=== PATIENT | female | born 1935 | race African-American/Black ===

== ENCOUNTER → 2016-09-26 | Outpatient (CLI) | payer MEDICAID, MEDICARE ==
--- NOTE | 2016-09-26 16:27 | WOMENS IMAGING REPORT ---
EXAM DESCRIPTION: BILAT SCREENING MAMMO W/CAD COMPLETED DATE/TIME: 09/26/2016 11:31 am REASON FOR STUDY: Z12.31 ROUTINE SCREENING MAMMO Z12.31 ENCNTR SCREEN MAMMOGRAM FOR MALIGNANT NEOPL ASM OF CHELY COMPARISON: None. TECHNIQUE: Standard craniocaudal and mediolateral oblique views of each breast recorded using Fresviia l acquisition. LIMITATIONS: None. FINDINGS: RIGHT BREAST MASSES: No suspicious masses. CALCIFICATIONS: No new or suspicious calcifications. ARCHITECTURAL DISTORTION: None. DEVELOPING DENSITY: None. ASYMMETRY: Asymmetry medial breast seen only on the CC new 10 cm from the nipple OTHER: No other significant findings. LEFT BREAST MASSES: No suspicious masses. CALCIFICATIONS: No new or suspicious calcifications. ARCHITECTURAL DISTORTION: None. DEVELOPING DENSITY: None. ASYMMETRY: None noted. OTHER: No other significant findings. Read with the assistance of CAD. .[facility] - R2 Cenova Version 1.3 .[facility] Imaging - R2 Cenova Version 1.3 .[facility] Imaging - R2 Cenova Version 2.4 .[facility] [place] - R2 Cenova Version 2.4 .[facility] - R2 Veneer Grader Version 9.2 BREAST DENSITY: b. There are scattered areas of fibroglandular density. BIRAD: 0 Incomplete: Additional Imaging Evaluation and/or prior Mammograms for Comparison. RECOMMENDATION: RECOMMENDED FOLLOW-UP: Spot compression with ultrasound if indicated. The patient will be contacted for additional imaging. COMMENT: The [place] [employer] (ACR) has developed recommendations for screening MRI of the breasts in certain patient populations, to be used in conjunction with mammography. Breast MRI s urveillance may be appropriate for women with more than 20% lifetime risk of developing breast cancer as determined by genetic testing, significant family history of the disease, or history of mantle r adiation for Hodgkins Disease. ACR Practice Guidelines 2008. TECHNICAL DOCUMENTATION: FINDING NUMBER: (1) ASSESSMENT: (1) JOB ID: [id number] [employer]- All Rights Reserved
== END ==
LOC: RAD 10:34
PROVIDERS: ATTEND Family Medicine
DX: Z12.31 Encounter for screening mammogram for malignant neoplasm of breast (principal)
CPT/HCPCS: 77067; G0202

== ENCOUNTER → 2016-10-10 | Outpatient (CLI) | payer MEDICARE | LOC: WI 09:17 | PROVIDERS: ATTEND Family Medicine | DX: R92.2 Inconclusive mammogram (principal) | CPT/HCPCS: 76642; G0204 ==

== ENCOUNTER 2018-06-05 16:36 | Emergency (ER) | payer MEDICARE ==
[2018-06-05 16:46] VITALS: BP 147/64
--- NOTE | 2018-06-05 17:32 | ER Document Report ---
ED General - General Mode of Arrival: Ambulatory Information source: Patient TRAVEL OUTSIDE OF THE U.S. IN LAST 30 DAYS: No - General Chief Complaint: Nausea Stated Complaint: MEDICATION INJESTION Time Seen by Provider: 06/05/18 17:22 Notes: Patient is an 82 year old female presenting to the emergency department accompanied by daughter due to accidentally taking the wrong medications around 1510 today. Patient states she was attempting to give her mentally disabled roommate his medications when she accidentally took them herself. His medications include Ditropan 5 mg and lisinopril hydrochlorothiazide 40/25. Patient states she feels a little weak and sleepy. She deneis any chest pain or recent falls. Patient mentions left arm pain with movement onset 1 month ago. She reports having an appointment with her PCP, Dr. Phillips on Jun.29. (KAMARI TOVAR) - Related Data Allergies/Adverse Reactions: Sulfa (Sulfonamide Antibiotics) Allergy (Intermediate, Verified 09/02/11 12:25) Generalized Itching Past Medical History - General Information source: Patient - Social History Smoking Status: Never Smoker Chew tobacco use (# tins/day): No Frequency of alcohol use: None Drug Abuse: None Family History: None Patient has suicidal ideation: No Patient has homicidal ideation: No - Past Medical History Cardiac Medical History: Reports: Hx Congestive Heart Failure, Hx Hypercholesterolemia, Hx Hypertension Neurological Medical History: Reports: Hx Cerebrovascular Accident Endocrine Medical History: Reports: Hx Diabetes Mellitus Type 2 - INSULIN AND ORAL MEDS GI Medical History: Reports: Hx Gastroesophageal Reflux Disease Musculoskeletal Medical History: Reports Hx Arthritis Psychiatric Medical History: Reports: Hx Depression Past Surgical History: Reports: Hx Cholecystectomy, Hx Tubal Ligation - Immunizations Hx Diphtheria, Pertussis, Tetanus Vaccination: Yes Hx Pneumococcal Vaccination: 08/26/11 Review of Systems - Review of Systems Constitutional: See HPI EENT: No symptoms reported Cardiovascular: No symptoms reported Respiratory: No symptoms reported Gastrointestinal: No symptoms reported Genitourinary: No symptoms reported Female Genitourinary: No symptoms reported Musculoskeletal: See HPI Skin: No symptoms reported Hematologic/Lymphatic: No symptoms reported Neurological/Psychological: No symptoms reported -: Yes All other systems reviewed and negative Physical Exam - Vital signs Vitals: Temp Pulse Resp BP Pulse Ox 98.5 F 88 14 147/64 H 94 06/05/18 16:43 06/05/18 16:43 06/05/18 16:43 06/05/18 16:43 06/05/18 16:43 - Notes Notes: GENERAL: Alert, interacts well. No acute distress. HEAD: Normocephalic, atraumatic. EYES: Pupils equal, round, and reactive to light. Extraocular movements intact. ENT: Oral mucosa moist, tongue midline. NECK: Full range of motion. Supple. Trachea midline. LUNGS: Clear to auscultation bilaterally, no wheezes, rales, or rhonchi. No respiratory distress. HEART: Regular rate and rhythm. No murmurs, gallops, or rubs. EXTREMITIES: Moves all 4 extremities spontaneously. Tender to palpation to distal left forearm, ulnar aspect, no signs of trauma, no deformities. NEUROLOGICAL: Alert and oriented x3. Normal speech. PSYCH: Normal affect, normal mood. SKIN: Warm, dry, normal turgor. No rashes or lesions noted. (KAMARI TOVAR) Course - Re-evaluation Re-evalutation: 06/05/18 17:32 Patient took a combination of lisinopril hydrochlorothiazide and a single dose of Ditropan. She is having no symptoms she is not hypotensive and she has urinated since the event. Patient will be discharged home, no need for observation, no need for labs, no need for EKG. Patient advised to record when she urinates next so we can make sure she is not having any urinary retention, will return should she have any difficulty urinating over the next 12 hours. Patient and daughter are in agreement with this plan. This was not a suicide attempt. (ASHA MADRID) - Vital Signs Vital signs: Temp Pulse Resp BP Pulse Ox 98.5 F 88 14 147/64 H 94 06/05/18 16:43 06/05/18 16:43 06/05/18 16:43 06/05/18 16:43 06/05/18 16:43 Discharge - Discharge Clinical Impression: Drug ingestion, accidental Qualifiers: Encounter type: initial encounter Qualified Code(s): T50.901A - Poisoning by unspecified drugs, medicaments and biological substances, accidental ( unintentional), initial encounter Condition: Stable Disposition: HOME, SELF-CARE Additional Instructions: Today your blood pressure was actually slightly elevated. This is a good thing because the medication she took can lower your blood pressure. Do not stand up suddenly and make sure you are drinking plenty of fluids. Please record when you urinate. If you go more than 8-12 hours without urinating please come to the emergency department as the Ditropan can cause urinary retention. You do not need to stay on a monitor, you do not need any blood work. You are safe for discharge home. Return for dizziness or inability to urinate. Referrals: DAIANA HURT, [NO LOCAL MD] - Follow up as needed Scribe Attestation: 06/05/18 20:58 I personally performed the services described in the documentation, reviewed and edited the documentation which was dictated to the scribe in my presence, and it accurately records my words and actions. (ASHA MADRID) Scribe Documentation - Scribe Written by Katia:: Katia Smith, 06/05/2018 17:51 acting as scribe for :: Kaitlin
== END 2018-06-05 17:40 | disposition home or self-care (01) ==
LOC: ER 16:36
DX: T44.3X5A Adverse effect of other parasympatholytics [anticholinergics and antimuscarinics] and spasmolytics, initial encounter (principal); T46.4X5A Adverse effect of angiotensin-converting-enzyme inhibitors, initial encounter; M79.602 Pain in left arm; R11.0 Nausea; R53.1 Weakness; I10 Essential (primary) hypertension; E11.9 Type 2 diabetes mellitus without complications; Z79.4 Long term (current) use of insulin; Z79.84 Long term (current) use of oral hypoglycemic drugs
CPT/HCPCS: 99283

== ENCOUNTER → 2018-08-08 | Outpatient (CLI) | payer MEDICARE, MEDICAID ==
--- NOTE | 2018-08-08 14:40 | WOMENS IMAGING REPORT ---
EXAM DESCRIPTION: BILAT SCREENING MAMMO W/CAD COMPLETED DATE/TIME: 08/08/2018 11:33 am REASON FOR STUDY: BILATERAL SCREENING MAMMO /Z12.31 Z12.31 ENCNTR SCREEN MAMMOGRAM FOR MALIGNANT NE OPLASM OF CHELY COMPARISON: 2016 TECHNIQUE: Standard craniocaudal and mediolateral oblique views of each breast recorded using AgentPiggya l acquisition. LIMITATIONS: None. FINDINGS: No masses, calcifications or architectural distortion. No areas of suspicion. Read with the assistance of CAD. .[facility] - R2 Cenova Version 1.3 .[facility] Imaging - R2 Cenova Version 1.3 .[facility] Imaging - R2 Cenova Version 2.4 .[facility] [place] R2 Cenova Version 2.4 .[facility] - R2 Power Plant Engineer Version 9.2 IMPRESSION: NORMAL MAMMOGRAM. BIRADS 1. BREAST DENSITY: b. There are scattered areas of fibroglandular density. BIRAD: 1 NEGATIVE RECOMMENDATION: ROUTINE SCREENING Please continue yearly bilateral screening mammography/tomosynthesis in July 2019 COMMENT: The patient has been notified of the results by letter per [place] requirements. Additional no tification policies are in place for contacting patient with suspicious or incomplete findings. Quality ID #[id number]: The [place] [employer] [employer] recommends an annual screening mammogram for women aged 40 years or over. This facility utilizes a reminder system to ensure that all patients receive reminder letters, and/or direct phone calls for appointments. This includes reminders for routine scr eening mammograms, diagnostic mammograms, or other Breast Imaging Interventions when appropriate. Th is patient will be placed in the appropriate reminder system. The [place] [employer] (ACR) has developed recommendations for screening MRI of the breast s in certain patient populations, to be used in conjunction with mammography. Breast MRI surveillanc e may be appropriate for women with more than 20% lifetime risk of developing breast cancer as deter mined by genetic testing, significant family history of the disease, or history of mantle radiation f or Hodgkins Disease. ACR Practice Guidelines 2008. TECHNICAL DOCUMENTATION: FINDING NUMBER: (1) ASSESSMENT: (1) JOB ID: [id number] [employer]- All Rights Reserved Reading location - IP/workstation name: [email or web address]
== END ==
LOC: WI 10:58
PROVIDERS: ATTEND Internal Medicine
DX: Z12.31 Encounter for screening mammogram for malignant neoplasm of breast (principal)
CPT/HCPCS: 77067

== ENCOUNTER 2018-08-24 03:27 | Emergency (ER) | payer MEDICARE, MEDICAID ==
[2018-08-24] MEDS ORDERED: ACETAMINOPHEN 325 MG TABLET PO ONE (04:04)
--- NOTE | 2018-08-24 04:12 | ER Document Report ---
Addendum entered and electronically signed by NORMAN MUSA PA-C 08/26/18 07:22: Discharge - Discharge Clinical Impression: Hip pain, left Condition: Stable Disposition: HOME, SELF-CARE Additional Instructions: Both the x-ray and CAT scan of your hip showed no acute fracture or dislocation. The urinalysis did not show any signs of infection. Please take either ibuprofen or Tylenol for pain. Please follow-up with Dr. Araujo's office, call him tomorrow morning to schedule an appointment. Referrals: MARTHA ARAUJO MD [Primary Care Provider] - Follow up as needed Original Note: ED General - General TRAVEL OUTSIDE OF THE U.S. IN LAST 30 DAYS: No - HPI Patient complains to provider of: hip pain - General Chief Complaint: Hip Pain Stated Complaint: BACK PAIN Time Seen by Provider: 08/24/18 03:37 Notes: Pleasant 82-year-old female with type 2 diabetes and hyperlipidemia presents to the emergency department for left hip pain. She says that she had a mechanical fall on July 20 and was otherwise fine until about 3 days ago when the pain returned. She said it got progressively worse to the point where she could not get out of bed this evening which prompted her to call 911. She otherwise ambulates on her own without assistance. She denies fevers, hitting her head, loss of consciousness, dizziness, lightheadedness, shortness of breath, chest pain, abdominal pain. (NORMAN MUSA) - Related Data Allergies/Adverse Reactions: Sulfa (Sulfonamide Antibiotics) Allergy (Intermediate, Verified 09/02/11 12:25) Generalized Itching Past Medical History - General Information source: Patient, Relative - Social History Smoking Status: Never Smoker Family History: None - Past Medical History Cardiac Medical History: Reports: Hx Congestive Heart Failure, Hx Hypercholesterolemia, Hx Hypertension Pulmonary Medical History: Denies: Hx Tuberculosis Neurological Medical History: Reports: Hx Cerebrovascular Accident Endocrine Medical History: Reports: Hx Diabetes Mellitus Type 2 - INSULIN AND ORAL MEDS Renal/ Medical History: Denies: Hx Peritoneal Dialysis GI Medical History: Reports: Hx Gastroesophageal Reflux Disease Musculoskeletal Medical History: Reports Hx Arthritis Psychiatric Medical History: Reports: Hx Depression Past Surgical History: Reports: Hx Cholecystectomy, Hx Tubal Ligation. Denies: Hx Pacemaker - Immunizations Hx Diphtheria, Pertussis, Tetanus Vaccination: Yes Hx Pneumococcal Vaccination: 08/26/11 Review of Systems - Review of Systems Constitutional: See HPI EENT: No symptoms reported Cardiovascular: See HPI Respiratory: See HPI Gastrointestinal: No symptoms reported Genitourinary: No symptoms reported Female Genitourinary: No symptoms reported Musculoskeletal: See HPI Skin: No symptoms reported Hematologic/Lymphatic: No symptoms reported Neurological/Psychological: See HPI Physical Exam - Vital signs Vitals: Temp Pulse Resp BP Pulse Ox 99.2 F 73 18 159/71 H 92 08/24/18 03:51 08/24/18 03:51 08/24/18 03:51 08/24/18 03:51 08/24/18 03:51 - Notes Notes: Reviewed vital signs and nursing note as charted by RN. CONSTITUTIONAL: Well-appearing, well-nourished, acting appropriately for age HEAD: Normocephalic, atraumatic, no swelling EYES: PERRL, Conjunctivae clear, no drainage, EOMI, no scleral icterus ENT: External ears without lesions, External auditory canal is patent, airway patent, mucous membranes pink and moist CARD: Regular rate and rhythm, no murmurs, no rubs, no gallops, capillary refill < 2 seconds, symmetric pulses RESP: The lungs are clear to auscultation bilaterally, no wheezing, no rales, no rhonchi. Respiratory rate and effort are normal, normal chest excursion. No respiratory distress, no retractions, no stridor, no nasal flaring, no accessory muscle use. ABD/GI: Normal bowel sounds, non-distended, soft, tenderness to palpation over left lower quadrant, area of firmness felt that could be consistent with lipoma, no rebound, no guarding, no palpable organomegaly EXT: Limited range of motion while lying in the bed patient was able to lift unaffected extremity about 3 inches off the bed briefly. She was able to elevate left lower extremity off the bed very briefly with pain. She does have tenderness to palpation over the lateral aspect of the left hip superior to the greater trochanter no effusions, no edema SKIN: Normal color for age and race, warm, dry, good turgor, no acute lesions noted NEURO: No facial asymmetry, moves all extremities equally, motor and sensory function intact (NORMAN MUSA) Course - Re-evaluation Re-evalutation: 08/24/18 04:12 Very pleasant 82-year-old woman who ambulates on her own presents to the emergency [facility] for left hip pain that started 3 days ago possibly related to a mechanical fall on giving. Inspection of the hip shows no evidence of erythema or warmth. She does have tenderness to palpation superior to the greater trochanter. She is able to slightly elevate her leg off of the bed. Left hip x-ray ordered. 08/24/18 05:40 X-ray negative for fracture. Reassessed patient she had acute point tenderness when palpating the hip. Patient is unable to ambulate. Will order CT left lower extremity with focus on the iliac crest to the mid femur. Also, daughter is advised the patient has been incontinent since this evening and has a frequency and soaked about 6 or 7 diapers. Urinalysis is added. 08/24/18 07:07 Warm handoff completed with Jillian Kumar. (NORMAN MUSA) 08/24/18 08:[address] of the left hip shows no acute abnormality. Multiple chronic and degenerative changes are noted. I discussed this with both the patient and her family at the bedside. They would like us to try to get the patient up and walk her after giving the pain medication a little time to work. Patient is agreeable to this plan and wants to be able to go home. 08/24/18 08:19 Patient assisted up out of bed, patient now ambulating to the restroom with a walker. Family reports that she uses a walker at home. Patient and family wish to be discharged home. (JILLIAN KUMAR) - Vital Signs Vital signs: Temp Pulse Resp BP Pulse Ox 99.2 F 73 18 159/71 H 92 08/24/18 03:51 08/24/18 03:51 08/24/18 03:51 08/24/18 03:51 08/24/18 03:51 Discharge - Discharge Clinical Impression: Hip pain, left Condition: Stable Additional Instructions: Both the x-ray and CAT scan of your hip showed no acute fracture or dislocation. The urinalysis did not show any signs of infection. Please take either ib uprofen or Tylenol for pain. Please follow-up with Dr. Araujo's office, call him tomorrow morning to schedule an appointment. Referrals: MARTHA ARAUJO MD [Primary Care Provider] - Follow up as needed
--- NOTE | 2018-08-24 05:05 | RADIOLOGY REPORT (SQ) ---
EXAM DESCRIPTION: XR HIP 2 OR MORE VIEWS COMPLETED DATE/TME: 08/24/2018 04:03 CLINICAL HISTORY: 82 years, Female, mechanical fall, pain COMPARISON: None. NUMBER OF VIEWS: 2 TECHNIQUE: AP pelvis and single view left hip LIMITATIONS: None. FINDINGS: Osteopenia. Extensive calcified uterine fibroids are noted. Negative for acute fracture or dislocation. Moderate degenerative change of the hips bilaterally. Soft tissues are unremarkable. IMPRESSION: Osteopenia with degenerative changes. Calcified uterine fibroids. copyright 2010 [employer]- All Rights Reserved
[2018-08-24] MEDS ORDERED: OXYCODONE HCL IR 5 MG TABLET PO ONE (06:55)
[2018-08-24 07:13] LABS: APPEARANCE,URINE SLIGHTLY-CLOUDY; BILIRUBIN,URINE NEGATIVE (NEGATIVE); COLOR,URINE STRAW; GLUCOSE, URINE NEGATIVE (NEGATIVE); KETONES,URINE NEGATIVE (NEGATIVE); LEUKOCYTE ESTERASE,URINE NEGATIVE (NEGATIVE); NITRITE,URINE NEGATIVE (NEGATIVE); PROTEIN,URINE NEGATIVE (NEGATIVE); URINE SPECIFIC GRAVITY 1.004; UROBILINOGEN,URINE NEGATIVE mg/dL (<2.0)
--- NOTE | 2018-08-24 07:21 | RADIOLOGY REPORT (SQ) ---
CLINICAL DATA: 82-year-old female with suspected occult fracture of left hip. TECHNICAL DATA: Axial CT imaging of the left hip was performed from the iliac crest to the mid femur without contrast. Sagittal and coronal reconstructed images were then performed. The CT study is performed according to ALARA (as low as reasonably achievable) or ALARA/IMAGE GENTLY, with automatic adjustment of mA and/or kV according to patient size. Performed on: 08/24/2018 at 6:05 AM Comparison: Previous left hip x-rays performed on 08/24/2018 at 4:54 AM FINDINGS: The left hip joint is intact. There is narrowing of the left hip joint with associated subchondral cyst formation and hypertrophic spurring consistent with mild to moderate osteoarthritis. The sacroiliac joint is intact. There are vacuum changes of the left sacroiliac joint. The pubic symphysis is intact and demonstrates mild degenerative changes. There are calcifications along the left iliofemoral arteries. There are large calcified fibroids in the pelvis. No focal soft tissue abnormalities are identified. There is no evidence of a hip joint effusion. No definite acute fracture is identified. There is diffuse bone demineralization. IMPRESSION: 1. No evidence of acute fracture involving the left hemipelvis or proximal left femur. 2. 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 3. Degenerative changes of the left sacroiliac joint and pubic symphysis. 4. Vascular calcifications. 5. Large calcified uterine fibroids.
[2018-08-24 08:28] VITALS: BP 177/65
== END 2018-08-24 08:39 | disposition home or self-care (01) ==
LOC: ER 03:27
DX: M25.552 Pain in left hip (principal); E78.00 Pure hypercholesterolemia, unspecified; E78.5 Hyperlipidemia, unspecified; E11.9 Type 2 diabetes mellitus without complications; I50.9 Heart failure, unspecified; I11.0 Hypertensive heart disease with heart failure; Z79.4 Long term (current) use of insulin; Z88.2 Allergy status to sulfonamides; Z90.49 Acquired absence of other specified parts of digestive tract; Z98.51 Tubal ligation status
CPT/HCPCS: 99284; 81001; 73502; 73700; A9270 ×2

== ENCOUNTER 2019-09-06 10:21 | Emergency (ER) | payer MEDICARE, MEDICAID ==
--- NOTE | 2019-09-06 11:02 | ER Document Report ---
ED Medical Screen (RME) - General Chief Complaint: Breathing Difficulty Stated Complaint: COUGH,CONGESTION Time Seen by Provider: 09/06/19 10:52 Primary Care Provider: MARTHA ARAUJO MD [Primary Care Provider] - Follow up as needed Mode of Arrival: Wheelchair Information source: Patient, Relative Notes: 83-year-old female with history of diabetes stroke high blood pressure presents emergency department with complaints of a really bad headache on the right side of her headache feeling dizzy just not feeling well. Daughter gives history of pneumonia approximately 11/2 months ago. Reports she has been on 3 rounds of antibiotics. Patient reports she is just not felt well since that time. Reports she had a severe headache on Saturday night. She reports that even hurt her head to touch it. She reports a little bit better has been taking 650 mg of Tylenol. No complaints of nausea vomiting diarrhea. I have greeted and performed a rapid initial assessment of this patient. A comprehensive ED assessment and evaluation of the patient, analysis of test results and completion of the medical decision making process will be conducted by additional ED providers. TRAVEL OUTSIDE OF THE [place] IN LAST 30 DAYS: No - Related Data Allergies/Adverse Reactions: Sulfa (Sulfonamide Antibiotics) Allergy (Intermediate, Verified 09/06/19 10:52) Generalized Itching Past Medical History - Social History Chew tobacco use (# tins/day): No Frequency of alcohol use: None Drug Abuse: None - Past Medical History Cardiac Medical History: Reports: Hx Congestive Heart Failure, Hx Hypercholesterolemia, Hx Hypertension Pulmonary Medical History: Denies: Hx Tuberculosis Neurological Medical History: Reports: Hx Cerebrovascular Accident Endocrine Medical History: Reports: Hx Diabetes Mellitus Type 2 - INSULIN AND ORAL MEDS Renal/ Medical History: Denies: Hx Peritoneal Dialysis GI Medical History: Reports: Hx Gastroesophageal Reflux Disease Musculoskeltal Medical History: Reports Hx Arthritis Psychiatric Medical History: Reports: Hx Depression Past Surgical History: Reports: Hx Cholecystectomy, Hx Tubal Ligation. Denies: Hx Pacemaker - Immunizations Hx Diphtheria, Pertussis, Tetanus Vaccination: Yes Doctor's Discharge - Discharge Referrals: MARTHA ARAUJO MD [Primary Care Provider] - Follow up as needed
--- NOTE | 2019-09-06 11:59 | RADIOLOGY REPORT (SQ) ---
EXAM DESCRIPTION: CT HEAD WITHOUT COMPLETED DATE/TIME: 09/06/2019 11:35 am REASON FOR STUDY: hx stroke [facility] COMPARISON: 2013. TECHNIQUE: Axial images acquired through the brain without intravenous contrast. Images reviewed wi th bone, brain and subdural windows. Additional sagittal and coronal reconstructions were generated. Images stored on PACS. All CT scanners at this facility use dose modulation, iterative reconstruction, and/or weight based d osing when appropriate to reduce radiation dose to as low as reasonably achievable (ALARA). [facility]: Dose Right [facility]: CareDose [facility]: Dose Right [facility]: Teradose 4D [facility]: Smart Iotelligent RADIATION DOSE: CT Rad equipment meets quality standard of care and radiation dose reduction techniq ues were employed. CTDIvol: 53.2 mGy. DLP: 991 mGy-cm. mGy. LIMITATIONS: None. FINDINGS: VENTRICLES: Slight dilatation, chronic. CEREBRUM: No masses. No hemorrhage. No midline shift. No evidence for acute infarction. Normal gra y/white matter differentiation. No areas of low density in the white matter. CEREBELLUM: No masses. No hemorrhage. No alteration of density. No evidence for acute infarction. EXTRAAXIAL SPACES: No fluid collections. No masses. ORBITS AND GLOBE: No intra- or extraconal masses. Normal contour of globe without masses. CALVARIUM: No fracture. PARANASAL SINUSES: No fluid or mucosal thickening. SOFT TISSUES: No mass or hematoma. OTHER: No other significant finding. IMPRESSION: No acute intracranial abnormality. Mild chronic changes. EVIDENCE OF ACUTE STROKE: NO. COMMENT: Quality ID # [id number]: Final reports with documentation of one or more dose reduction techniques (e.g., Automated exposure control, adjustment of the mA and/or kV according to patient size, use of iterative reconstruction technique) TECHNICAL DOCUMENTATION: JOB ID: [id number] [employer]- All Rights Reserved Reading location - IP/workstation name: [email or web address]
[2019-09-06] MEDS ORDERED: IPRATROPIUM/ALBUTEROL 0.5-2.5 MG/3 ML AMPUL NEB ONE (12:03)
--- NOTE | 2019-09-06 12:03 | RADIOLOGY REPORT (SQ) ---
EXAM DESCRIPTION: CHEST 2 VIEWS COMPLETED DATE/TIME: 09/06/2019 11:39 am REASON FOR STUDY: hx pneumonia cough COMPARISON: 09/12/2012. TECHNIQUE: Frontal and lateral radiographic views of the chest acquired. NUMBER OF VIEWS: Two view. LIMITATIONS: None. FINDINGS: LUNGS AND PLEURA: Linear areas of density in the lingula and lower lobes and right middle lobe. Some of this reflect scar. Other densities look like volume loss. Doubt pneumonia. MEDIASTINUM AND HILAR STRUCTURES: No masses or contour abnormalities. HEART AND VASCULAR STRUCTURES: Cardiac enlargement with slight central vascular congestion. BONES: No acute findings. HARDWARE: None in the chest. OTHER: No other significant finding. IMPRESSION: Areas of scar and subsegmental atelectasis. Cardiomegaly with vascular congestion. TECHNICAL DOCUMENTATION: JOB ID: [id number] [email or web address]- All Rights Reserved Reading location - IP/workstation name: [email or web address]
[2019-09-06] MEDS ORDERED: HYDROCODONE/ACETAMINOPHEN 5-325 MG TABLET PO ONE (12:04)
[2019-09-06 12:34] LABS: ABSOLUTE EOSINOPHILS # (AUTO) 0.1 10^3/uL (0.0-0.6); ABSOLUTE LYMPHOCYTES (AUTO) 0.6 10^3/uL (0.5-4.7); ABSOLUTE MONOCYTES (AUTO) 0.4 10^3/uL (0.1-1.4); ABSOLUTE NEUT (AUTO) 2.7 10^3/uL (1.7-8.2); BASOPHILS % (AUTO) 1.1 % (0-2); EOSINOPHILS % (AUTO) 1.6 % (0-6); HEMATOCRIT 36.3 % (36.0-47.0); HEMOGLOBIN 12.2 g/dL (12.0-15.5); MEAN CORPUSCULAR HEMOGLOBIN 32.3 pg (27.0-33.4); MEAN CORPUSCULAR HGB CONC 33.6 g/dL (32.0-36.0); MEAN CORPUSCULAR VOLUME 96 fl (80-97); MONOCYTES % (AUTO) 11.5 % (3-13); PLATELET COUNT 179 10^3/uL (150-450); RED BLOOD COUNT 3.78 10^6/uL (3.72-5.28); RED CELL DISTRIBUTION WIDTH 14.5 % (11.5-14.0); SEGMENTED NEUTROPHILS % (AUTO) 69.8 % (42-78); TOTAL CELLS COUNTED % (AUTO) 100 %; WHITE BLOOD COUNT 3.9 10^3/uL (4.0-10.5)
[2019-09-06 12:43] LABS: APPEARANCE,URINE CLEAR; BILIRUBIN,URINE NEGATIVE (NEGATIVE); COLOR,URINE YELLOW; GLUCOSE, URINE NEGATIVE (NEGATIVE); KETONES,URINE NEGATIVE (NEGATIVE); LEUKOCYTE ESTERASE,URINE NEGATIVE (NEGATIVE); NITRITE,URINE NEGATIVE (NEGATIVE); PROTEIN,URINE 100 mg/dL (NEGATIVE); URINE SPECIFIC GRAVITY 1.009; UROBILINOGEN,URINE NEGATIVE mg/dL (<2.0)
[2019-09-06 12:50] LABS: ALKALINE PHOSPHATASE 62 U/L (38-126); ANION GAP 10 (5-19); ASPARTATE AMINO TRANSFERASE 25 U/L (14-36); BILIRUBIN,DIRECT 0.2 mg/dL (0.0-0.4); BILIRUBIN,TOTAL 0.7 mg/dL (0.2-1.3); BLOOD UREA NITROGEN 17 mg/dL (7-20); CALCIUM 9.5 mg/dL (8.4-10.2); CARBON DIOXIDE 30 mmol/L (22-30); CHLORIDE 100 mmol/L (98-107); GLUCOSE 153 mg/dL (75-110); POTASSIUM 4.5 mmol/L (3.6-5.0); TOTAL PROTEIN 7.1 g/dL (6.3-8.2)
[2019-09-06] MEDS ORDERED: FUROSEMIDE INJ/PF 20 MG/2 ML SDV IV ONE (14:15)
--- NOTE | 2019-09-06 14:36 | ER Document Report ---
Entered by MANDY ORONA SCRIBE 09/06/19 1153 Acting as scribe for:NIESHA ARELLANO MD ED Respiratory Problem - General Chief Complaint: Breathing Difficulty Stated Complaint: COUGH,CONGESTION Time Seen by Provider: 09/06/19 10:52 Primary Care Provider: MARTHA ARAUJO MD [Primary Care Provider] - Follow up as needed Mode of Arrival: Wheelchair Notes: This 83 year old female patient presents to the emergency department today with complaints of a cough for over a month. Patient reports that she was put on zithromax x7 weeks ago but her cough has never changed. Patient has also had a headache. Patient is a difficult historian so history is limited. Later during the work-up, the patient reports she does have a history of congestive heart failure, that she has noticed that she gets more short of breath when walking for the last few weeks. Her medications include hydrochlorothiazide 12.5 mg daily. TRAVEL OUTSIDE OF THE [place] IN LAST 30 DAYS: No - Related Data Allergies/Adverse Reactions: Sulfa (Sulfonamide Antibiotics) Allergy (Intermediate, Verified 09/06/19 10:52) Generalized Itching Past Medical History - General Information source: Patient, Relative - Social History Smoking Status: Never Smoker Cigarette use (# per day): No Chew tobacco use (# tins/day): No Smoking Education Provided: No Frequency of alcohol use: None Drug Abuse: None Lives with: Family Family History: None Patient has suicidal ideation: No Patient has homicidal ideation: No - Past Medical History Cardiac Medical History: Reports: Hx Congestive Heart Failure, Hx Hypercholesterolemia, Hx Hypertension Neurological Medical History: Reports: Other - Probable TIA 4 years ago, treated in the office Endocrine Medical History: Reports: Hx Diabetes Mellitus Type 2 - INSULIN AND ORAL MEDS GI Medical History: Reports: Hx Gastroesophageal Reflux Disease Musculoskeletal Medical History: Reports Hx Arthritis Psychiatric Medical History: Reports: Hx Depression Past Surgical History: Reports: Hx Cholecystectomy, Hx Tubal Ligation - Immunizations Hx Diphtheria, Pertussis, Tetanus Vaccination: Yes Hx Pneumococcal Vaccination: 08/26/11 Review of Systems - Review of Systems Constitutional: No symptoms reported EENT: No symptoms reported Cardiovascular: No symptoms reported Respiratory: See HPI, Cough Gastrointestinal: No symptoms reported Genitourinary: No symptoms reported Female Genitourinary: No symptoms reported Musculoskeletal: No symptoms reported Skin: No symptoms reported Hematologic/Lymphatic: No symptoms reported Neurological/Psychological: See HPI, Headaches -: Yes All other systems reviewed and negative Physical Exam - Vital signs Vitals: Resp 17 09/06/19 11:18 Interpretation: Normal - General General appearance: Appears well, Alert - HEENT Head: Normocephalic, Atraumatic, Tenderness - Right scalp muscles are tender with palpation Eyes: Normal Pupils: PERRL Neck: Other - Right paraspinal musculature tenderness with palpation. - Respiratory Respiratory status: No respiratory distress Chest status: Nontender Breath sounds: Wheezing - slightly on the right Chest palpation: Normal - Cardiovascular Rhythm: Regular Heart sounds: Normal auscultation Murmur: No - Abdominal Inspection: Normal Distension: No distension Bowel sounds: Normal Tenderness: Nontender Organomegaly: No organomegaly - Back Back: Normal, Nontender - Extremities General upper extremity: Normal inspection. No: Edema General lower extremity: Normal inspection. No: Edema - Neurological Neuro grossly intact: Yes Cognition: Normal Orientation: AAOx4 [place] Coma Scale Eye Opening: Spontaneous [place] Coma Scale Verbal: Oriented [place] Coma Scale Motor: Obeys Commands [place] Coma Scale Total: 15 Speech: Normal - Psychological Associated symptoms: Normal affect, Normal mood - Skin Skin Temperature: Warm Skin Moisture: Dry Skin Color: Normal Course - Re-evaluation Re-evalutation: 09/06/19 15:16 The patient is found to be an atrial flutter with controlled rate. The family and the patient have never been told she had atrial fibrillation or atrial flutter in the past. There is only one EKG comparison in the chart notes from many years ago. 09/06/19 16:00 The chest x-ray showed mild pulmonary vascular congestion, and the BNP was elevated. Patient was given Lasix 20 mg IV, she did recently put out 600 mL's of urine. - Vital Signs Vital signs: Temp Pulse Resp BP Pulse Ox 98.2 F 26 H 128/67 H 96 09/06/19 14:30 09/06/19 16:01 09/06/19 16:01 09/06/19 16:01 - Laboratory Result Diagrams: 09/06/19 12:20 09/06/19 12:20 Laboratory results interpreted by me: 09/06/19 09/06/19 09/06/19 12:20 12:20 12:20 WBC 3.9 L RDW 14.5 H Est GFR (MDRD) Non-Af 59 L Glucose 153 H NT-Pro-B Natriuret Pep 2360 H Urine Protein 09/06/19 12:30 WBC RDW Est GFR (MDRD) Non-Af Glucose NT-Pro-B Natriuret Pep Urine Protein 100 H - Diagnostic Test Radiology reviewed: Image reviewed, Reports reviewed - Chest x-ray shows cardiomegaly with vascular congestion. There are areas of scarring and subsegmental atelectasis. CT scan of the head shows mild chronic changes. - EKG Interpretation by Ri EKG shows normal: [place], Intervals, QRS Complexes. abnormal: ST-T Waves - Borderline inferior T abnormalities Rate: Normal - 70 Rhythm: A.Flutter - Atrial flutter with varying AV block. Critical Care Note - Critical Care Note Total time excluding time spent on procedures (mins): 35 Discharge - Discharge Clinical Impression: Pulmonary vascular congestion, Cardiomegaly, Dyspnea on exertion Atrial flutter Qualifiers: Atrial flutter type: unspecified Qualified Code(s): I48.92 - Unspecified atrial flutter Condition: Stable Disposition: HOME, SELF-CARE Additional Instructions: Congestive Heart Failure You have been diagnosed as having congestive heart failure (CHF). CHF occurs when the heart is unable to pump blood efficiently, leading to fluid buildup in the veins and lungs. Typical symptoms are swelling of the legs, shortness of breath on minor exertion, and fatigue. CHF is treated with salt restriction, medicine to eliminate excess water and salt from the body, and medication to help the heart contract more efficiently. Eliminate added salt and salty foods in your diet. Decrease your activity until excess fluid has been eliminated. It will also be helpful to raise the head of your bed so you can sleep more easily. Keep a daily record of your weight. This will help your physician monitor your progress. Once extra water has been eliminated, light aerobic exercise daily -- such as walking -- will be helpful (unless your physician has told you to restrict activity for other reasons). Be sure to follow up with the physician as instructed. Contact the doctor at once if you worsen in any way. Your evaluation today showed some fluid buildup in the lung tissue, this is called pulmonary vascular congestion or congestive heart failure. You are also found to have an abnormal heart rhythm called atrial flutter. Review of your records does not show this being diagnosed in the past. You should continue your regular medications. Take the copies of your lab work, EKG, and chest x-ray readings to follow-up with Dr. Araujo in the office tomorrow. RETURN TO THE EMERGENCY ROOM IF ANY NEW OR WORSENING SYMPTOMS. Referrals: MARTHA ARAUJO MD [Primary Care Provider] - Follow up tomorrow Scribe Attestation: 09/06/19 13:06 I personally performed the services described in the documentation, reviewed and edited the documentation which was dictated to the scribe in my presence, and it accurately records my words and actions. I personally performed the services described in the documentation, reviewed and edited the documentation which was dictated to the scribe in my presence, and it accurately records my words and actions.
[2019-09-06 17:15] VITALS: BP 129/70
--- NOTE | 2019-09-06 20:45 | EKG REPORT ---
SEVERITY:- ABNORMAL ECG - A-FLUTTER W/ VARIED AV BLOCK, A-RATE 272 BORDERLINE T ABNORMALITIES, INFERIOR LEADS : Confirmed by: Nino Diego 06-Sep-2019 20:45:06
== END 2019-09-06 17:05 | disposition home or self-care (01) ==
LOC: ER 10:21
DX: R06.00 Dyspnea, unspecified (principal); I48.92 Unspecified atrial flutter; I51.7 Cardiomegaly; R09.89 Other specified symptoms and signs involving the circulatory and respiratory systems; R51 Headache; R42 Dizziness and giddiness; E78.00 Pure hypercholesterolemia, unspecified; I10 Essential (primary) hypertension; E11.9 Type 2 diabetes mellitus without complications; Z90.49 Acquired absence of other specified parts of digestive tract; Z98.51 Tubal ligation status; Z88.2 Allergy status to sulfonamides; Z79.4 Long term (current) use of insulin; Z79.84 Long term (current) use of oral hypoglycemic drugs
CPT/HCPCS: 93005; 94640; 99285; 96374; 36415; 85025; 80053; 81001; 84484; 83880; 71046; 70450; 93010; J1940; A9270 ×2; J7620

== ENCOUNTER 2020-06-01 02:03 | Inpatient (IN) | payer MEDICARE, MEDICAID ==
--- NOTE | 2020-06-01 02:30 | ER Document Report ---
ED Cardiac - General Stated Complaint: POST ARREST Time Seen by Provider: 06/01/20 02:30 Primary Care Provider: MARTHA ARAUJO MD [Primary Care Provider] - Follow up as needed TRAVEL OUTSIDE OF THE [place] IN LAST 30 DAYS: No - HPI Notes: 84-year-old female arrives after cardiac arrest at home. Per EMS report, family had last seen patient about an hour before they found her sitting in a chair unresponsive. EMS was called. They report patient's initial rhythm was asystole, eventually turned into PEA, she received 4 doses of epinephrine and had ROSC obtained. Patient then had another brief episode of cardiac arrest, they did not state the rhythm, received 1 dose of epi and ROSC was again achieve d. Report blood glucose 245. She arrives with a Olayinka airway in place. - Related Data Allergies/Adverse Reactions: Sulfa (Sulfonamide Antibiotics) Allergy (Intermediate, Verified 09/06/19 10:52) Generalized Itching Past Medical History - General Information source: Emergency Med Personnel - Social History Smoking Status: Unknown if Ever Smoked Family History: None - Past Medical History Cardiac Medical History: Reports: Hx Congestive Heart Failure, Hx Hypercholesterolemia, Hx Hypertension Pulmonary Medical History: Denies: Hx Tuberculosis Neurological Medical History: Reports: Hx Cerebrovascular Accident Endocrine Medical History: Reports: Hx Diabetes Mellitus Type 2 - INSULIN AND ORAL MEDS Renal/ Medical History: Denies: Hx Peritoneal Dialysis GI Medical History: Reports: Hx Gastroesophageal Reflux Disease Musculoskeletal Medical History: Reports Hx Arthritis Psychiatric Medical History: Reports: Hx Depression Past Surgical History: Reports: Hx Cholecystectomy, Hx Tubal Ligation. Denies: Hx Pacemaker - Immunizations Hx Diphtheria, Pertussis, Tetanus Vaccination: Yes Hx Pneumococcal Vaccination: 08/26/11 Review of Systems - Review of Systems -: Yes ROS unobtainable due to patient's medical condition Physical Exam - Vital signs Vitals: Pulse Ox 92 06/01/20 02:31 - General General appearance: Unresponsive - HEENT Head: Normocephalic, Atraumatic Eyes: No: Scleral icterus Notes: Slight pupillary discrepancy, right pupil his 3 mm and reactive, left pupil is 2 mm and reactive. Appears potentially she has had cataract surgery. Mucous membranes appear pale, she is edentulous. No JVD. - Respiratory Respiratory status: Other - Patient occasionally with spontaneous respiratory effort Breath sounds: Rhonchi - Cardiovascular Rhythm: Regular Pulses: Normal: Carotid, Femoral - Abdominal Inspection: Obese - Extremities General lower extremity: Edema - Neurological Notes: GCS 3 with occasional spontaneous respiratory effort - Psychological Associated symptoms: Other - Unable to assess - Skin Skin Temperature: Warm Course - Re-evaluation Re-evalutation: 84-year-old female arrives status post cardiac arrest at home. Present immediately on EMS arrival. Per EMS report, patient was found unresponsive in her chair at home, initial rhythm asystole which turned into PEA, she ultimately received 5 rounds of epi. Olayinka airway in place. On arrival patient is a GCS 3 with occasional spontaneous respiratory effort. She arrived with heart rate in the 90s, she then had decreased to the 50s-40s with blood pressure 70s/40s. Patient received a IV dose of epinephrine, with increased heart rate and blood pressure. It was noted that patient had a brief episode of a polyform vtach, appeared to be torsade. This was captured on the monitor. She immediately received 2 g magnesium push and did not have any other recorded episodes of this. She was intubated with 7.0 ETT, 22 at the [facility]. EKG obtained which shows a sinus rhythm, prolonged NH interval, QTC within normal limits, no STEMI. Laboratory and imaging have been ordered. Bedside ultrasound performed, no large pericardial effusion 06/01/20 03:27 Discussed with ICU for admission 06/01/20 03:52 Family has arrived at bedside and they were updated. Patient's daughter states around 11:50 PM she received a call from patient's roommate, roommate put the phone to patient's face and she was mumbling incoherently. Patient son states that for the past 2 weeks he has been taking her to her doctor's office multiple times, she has been being seen for generalized weakness and cough. He states that she had some high potassium and was on 5 days of medication to help with that. He states that she also recently saw her utility arborist who said "she was as good as she could before her age", "not a candidate for a cardiac cath". 06/01/20 03:55 No leukocytosis or left shift. Chronic anemia. Metabolic and lactic acidosis. Potassium within normal limits. Elevated creatinine, TRISTIAN. Elevated LFTs, likely shock liver. BNP elevated, troponin leak. Chest x-ray showing right lower airspace opacity, Zosyn ordered for empiric coverage. 06/01/20 04:[address] is negative for bleed. Patient remains hemodynamically stable, has not had any spontaneous movement, no sedation currently. - Vital Signs Vital signs: Temp Pulse Resp BP Pulse Ox 97.5 F 92 06/01/20 02:50 06/01/20 02:31 - Laboratory Result Diagrams: 06/01/20 02:13 06/01/20 02:13 Laboratory results interpreted by me: 06/01/20 06/01/20 06/01/20 02:13 02:13 02:13 RBC 3.69 L Hgb 11.6 L MCV 101 H MCHC 31.2 L RDW 16.0 H VBG pH VBG HCO3 Chloride 96 L Carbon Dioxide 19 L Anion Gap 24 H BUN 35 H Creatinine 2.50 H Est GFR ( Amer) 22 L Est GFR (MDRD) Non-Af 18 L Glucose 266 H POC Glucose Lactic Acid 13.2 H Phosphorus 9.6 H Direct Bilirubin 0.8 H AST 681 H ALT 405 H Alkaline Phosphatase 154 H NT-Pro-B Natriuret Pep 06/01/20 06/01/20 06/01/20 02:13 02:32 03:16 RBC Hgb MCV MCHC RDW VBG pH 7.08 L* VBG HCO3 17.3 L Chloride Carbon Dioxide Anion Gap BUN Creatinine Est GFR ( Amer) Est GFR (MDRD) Non-Af Glucose POC Glucose 168 H Lactic Acid Phosphorus Direct Bilirubin AST ALT Alkaline Phosphatase NT-Pro-B Natriuret Pep 9700 H - Diagnostic Test Radiology reviewed: Image reviewed, Reports reviewed - EKG Interpretation by Me Additional EKG results interpreted by me: EKG is interpreted by me. Sinus rhythm, rate 83. First-degree AV block, NH interval 280. Narrow QRS, QTC within normal limits. Nonspecific T wave abnormalities. No ST elevation. Procedures - Intubation Orotracheal Airway evaluation: Large tongue, Neck immobility Medications: Other - None, patient unresponsive post cardiac arrest Intubation method: Orotracheal Blade type: [place] Blade size: 3 Equipment used: Glidescope ETT size: 7.0 ETT secured at: Gums ETT secured at (cm): 22 Breath Sounds after Intubation: Equal End tidal CO2 confirmed: Yes Post Intubation Xray: Yes Intubation Complications: No complications Critical Care Note - Critical Care Note Total time excluding time spent on procedures (mins): 45 Comments: Critical care management related to cardiac arrest, arrhythmia requiring IV medications, etc. Discharge - Discharge Clinical Impression: Cardiac arrest, Lactic acidosis, Shock liver, Respiratory failure requiring intubation Disposition: ADMITTED INPATIENT Unit Admitted: ICU Referrals: MARTHA ARAUJO MD [Primary Care Provider] - Follow up as needed
[2020-06-01] MEDS ORDERED: EPINEPHRINE INJ 1 MG/10 ML DISP.SYRIN IV ONE (02:35)
[2020-06-01 02:49] LABS: ABSOLUTE EOSINOPHILS # (AUTO) 0.1 10^3/uL (0.0-0.6); ABSOLUTE LYMPHOCYTES (AUTO) 3.4 10^3/uL (0.5-4.7); ABSOLUTE MONOCYTES (AUTO) 0.4 10^3/uL (0.1-1.4); ABSOLUTE NEUT (AUTO) 5.5 10^3/uL (1.7-8.2); BASOPHILS % (AUTO) 0.5 % (0-2); EOSINOPHILS % (AUTO) 0.7 % (0-6); HEMATOCRIT 37.2 % (36.0-47.0); HEMOGLOBIN 11.6 g/dL (12.0-15.5); LYMPHOCYTES % (AUTO) 35.6 % (13-45); MEAN CORPUSCULAR HEMOGLOBIN 31.4 pg (27.0-33.4); MEAN CORPUSCULAR HGB CONC 31.2 g/dL (32.0-36.0); MEAN CORPUSCULAR VOLUME 101 fl (80-97); MONOCYTES % (AUTO) 4.7 % (3-13); PLATELET COUNT 201 10^3/uL (150-450); RED BLOOD COUNT 3.69 10^6/uL (3.72-5.28); SEGMENTED NEUTROPHILS % (AUTO) 58.5 % (42-78); TOTAL CELLS COUNTED % (AUTO) 100 %; WHITE BLOOD COUNT 9.4 10^3/uL (4.0-10.5)
[2020-06-01 02:50] LABS: ALBUMIN 3.9 g/dL (3.5-5.0); ALKALINE PHOSPHATASE 154 U/L (38-126); BILIRUBIN,DIRECT 0.8 mg/dL (0.0-0.4); BILIRUBIN,TOTAL 1.1 mg/dL (0.2-1.3); BLOOD UREA NITROGEN 35 mg/dL (7-20); CALCIUM 8.9 mg/dL (8.4-10.2); CARBON DIOXIDE 19 mmol/L (22-30); CHLORIDE 96 mmol/L (98-107); GLUCOSE 266 mg/dL (75-110); PHOSPHORUS 9.6 mg/dL (2.5-4.5); POTASSIUM 4.1 mmol/L (3.6-5.0); TOTAL PROTEIN 6.4 g/dL (6.3-8.2)
[2020-06-01] MEDS: MAGNESIUM SULFATE/D5W 1 GM/100 ML RTUPB IV SCH (02:55)
[2020-06-01 02:57] LABS: ANION GAP 24 (5-19); ASPARTATE AMINO TRANSFERASE 681 U/L (14-36)
[2020-06-01 03:03] LABS: TROPONIN I 0.153 ng/mL
[2020-06-01] MEDS ORDERED: RINGERS SOLUTION,LACTATED 1,000 ML IV ONE (03:04)
[2020-06-01 03:23] LABS: VENOUS BLOOD BASE EXCESS -12.9 mmol/L; VENOUS BLOOD HCO3 17.3 mmol/L (20-32); VENOUS BLOOD PCO2 60.5 mmHg (35-63)
[2020-06-01 03:27] LABS: VENOUS BLOOD PH 7.08 (7.30-7.42)
--- NOTE | 2020-06-01 03:38 | RADIOLOGY REPORT (SQ) ---
EXAM DESCRIPTION: XR CHEST 1 VIEW COMPLETED DATE/TME: 06/01/2020 02:30 CLINICAL HISTORY: 84 years, Female, intubated COMPARISON: 09/06/2019 NUMBER OF VIEWS: One TECHNIQUE: AP view of the chest LIMITATIONS: None. FINDINGS: There is a right basilar airspace opacity. Stable elevation the right hemidiaphragm. A small right pleural effusion is likely present. The heart size is stable. No pneumothorax. The endotracheal tube terminates approximately 5.5 cm above the avn. A nasogastric tube has its side port in the distal esophagus. IMPRESSION: Satisfactory positioning of the endotracheal tube. Side-port for the nasogastric tube is in the distal esophagus and should be advanced at least 12 cm. Right basilar airspace opacity with probable small right pleural effusion copyright 2011 [employer]- All Rights Reserved
[2020-06-01] MEDS ORDERED: PIPERACILLIN/TAZOBACTAM 3.375 GM VIAL IV ONE (03:52)
--- NOTE | 2020-06-01 04:04 | RADIOLOGY REPORT (SQ) ---
INDICATION: cardiac arrest. COMPARISON: September 06, 2019 CORRELATION: None TECHNIQUE: Noncontrast spiral axial CT images were obtained from the skull base to vertex. This exam was performed according to our departmental dose-optimization program, which includes automated exposure control, adjustment of the mA and/or kV according to patient size and/or use of iterative reconstruction techniques. FINDINGS: There is no evidence of acute intracranial hemorrhage, midline shift, mass effect or mass lesion. It appears be mild global blurring of the aguilar-white differentiation. Mild sulcal effacement. This is adverse change. Ventricles are within normal limits. The visualized paranasal sinuses are grossly clear. The orbits and eyeballs are unremarkable. The mastoid air cells are clear. Skull base and calvarium appear intact. Vascular calcification IMPRESSION: Global blurring of aguilar-white differentiation suspicious for anoxic injury and resultant edema. No evidence of hemorrhage.
[2020-06-01 04:28] LABS: APPEARANCE,URINE SLIGHTLY-CLOUDY; BILIRUBIN,URINE NEGATIVE (NEGATIVE); COLOR,URINE YELLOW; GLUCOSE, URINE NEGATIVE (NEGATIVE); KETONES,URINE NEGATIVE (NEGATIVE); LEUKOCYTE ESTERASE,URINE TRACE (NEGATIVE); NITRITE,URINE NEGATIVE (NEGATIVE); PROTEIN,URINE 30 mg/dL (NEGATIVE); URINE SPECIFIC GRAVITY 1.011; UROBILINOGEN,URINE NEGATIVE mg/dL (<2.0)
[2020-06-01 04:41] LABS: URINE AMPHETAMINES SCREEN NEGATIVE; URINE BARBITURATES SCREEN NEGATIVE; URINE BENZODIAZEPINES SCREEN NEGATIVE; URINE COCAINE SCREEN NEGATIVE; URINE MARIJUANA (THC) SCREEN NEGATIVE; URINE METHADONE SCREEN NEGATIVE; URINE PHENCYCLIDINE SCREEN NEGATIVE
[2020-06-01] MEDS ORDERED: DEXTROSE 40% GEL 15 GM TUBE PO PRN ×2 (05:05)
[2020-06-01] MEDS ORDERED: IPRATROPIUM/ALBUTEROL 0.5-2.5 MG/3 ML AMPUL NEB PRN (05:05)
[2020-06-01] MEDS ORDERED: DEXTROSE 50%-WATER 25 GM/50 ML DISP.SYRIN IV PRN ×2 (05:05)
[2020-06-01] MEDS ORDERED: GLUCAGON,HUMAN RECOMB 1 MG INJ SUBCUT PRN (05:05)
[2020-06-01] MEDS ORDERED: ACETAMINOPHEN 325 MG TABLET PO PRN (05:05)
--- NOTE | 2020-06-01 05:36 | CRITICAL CARE ADMISSION REPORT ---
HPI Date:: 06/01/20 Reason for ICU Reason:: Post arrest Admission Date/Time & PCP: Admission Date/Time: 06/01/20 04:50 Primary Care Provider: MARTHA ARAUJO HPI: 84-year-old female arrives after cardiac arrest at home. Per EMS report, family had last seen patient about an hour before they found her sitting in a chair unresponsive. EMS was called. They report patient's initial rhythm was asystole, eventually turned into PEA, she received 4 doses of epinephrine and had ROSC obtained. Patient then had another brief episode of cardiac arrest, they did not state the rhythm, received 1 dose of epi and ROSC was again achieved. Report blood glucose 245. - Diagnosis/Plan (1) Cardiac arrest Is this a current diagnosis for this admission?: Yes Plan: Continue to monitor hemodynamics (2) Lactic acidosis Is this a current diagnosis for this admission?: Yes Plan: s/p cardiac arrest. Monitor hemodynamics. Monitor level (3) Shock liver Is this a current diagnosis for this admission?: Yes Plan: s/p cardiac and respiratory arrest. Hypoperfusion (4) Respiratory failure Qualifiers: Chronicity: acute Respiratory failure complication: hypoxia Qualified Code(s): J96.01 - Acute respiratory failure with hypoxia Is this a current diagnosis for this admission?: Yes Plan: s/p cardiac. s/p respiratory arrest. RLL infiltrates aspiration vs. pneumonia Past Medical History Cardiac Medical History: Reports: Congestive Heart Failure, Hyperlipidema, Hypertension Pulmonary Medical History: Denies: Tuberculosis Endocrine Medical History: Reports: Diabetes Mellitus Type 2 - INSULIN AND ORAL MEDS GI Medical History: Reports: Gastroesophageal Reflux Disease Musculoskeltal Medical History: Reports: Arthritis Psychiatric Medical History: Reports: Depression Past Surgical History Past Surgical History: Reports: Cholecystectomy, Tubal Ligation Denies: Pacemaker Social/Family History - Social History Lives with: Family Smoking Status: Unknown if Ever Smoked Hx Recreational Drug Use: No Hx Prescription Drug Abuse: No - Medication/Allergies Home Medications: Aspirin [Aspirin 81 mg Chewable Tablet] 81 mg PO DAILY 09/02/11 Gabapentin [Neurontin] 600 mg PO QID 09/02/11 Insulin Aspart [Novolog] 3 unit SQ ASDIR PRN 09/02/11 Insulin Detemir [Levemir] 15 unit SQ QPM 09/02/11 Insulin Detemir [Levemir] 35 unit SQ QAM 09/02/11 Metformin HCl [Glucophage 1000 mg Tablet] 1,000 mg PO BID 09/02/11 Nifedipine [Nifedipine ER] 60 mg PO DAILY 09/02/11 Omeprazole [Prilosec 20 mg Capsule] 20 mg PO DAILY 09/02/11 Valsartan [Diovan] 320 mg PO DAILY 09/02/11 Vitamin D2 1 cap PO Q14D 09/02/11 Promethazine HCl [Phenergan 25 mg Tablet] 1 tab PO Q6HP PRN 09/10/11 Simvastatin [Zocor 20 mg Tablet] 20 mg PO QHS 09/12/12 Olopatadine HCl [Pataday] 1 drop OU DAILY 09/14/12 Furosemide [Lasix 40 mg Tablet] 40 mg PO DAILY #0 tablet 09/15/12 Insulin Lispro [Humalog Insulin (Lispro) 100 unit/mL] 0 unit SUBCUT ACHSP PRN #0 unit 09/15/12 Oxycodone HCl [Oxy-Ir 5 mg Tablet] 15 mg PO QIDP PRN #0 tablet 09/15/12 Metoprolol Succinate [Toprol Xl 50 mg Tab.sr] 50 mg PO DAILY #0 tab.sr.24h 09/16/12 Allergies/Adverse Reactions: Sulfa (Sulfonamide Antibiotics) Allergy (Intermediate, Verified 09/06/19 10:52) Generalized Itching Review of Systems ROS unobtainable: Due to endotracheal tube Physical Exam Vital Signs: Temp Pulse Resp BP Pulse Ox 97.2 F 0 L 126/76 H 95 06/01/20 04:56 06/01/20 04:55 06/01/20 04:56 06/01/20 04:36 Intake & Output 05/30/20 05/31/20 06/01/20 06:59 06:59 06:59 Intake Total 1000 Balance 1000 Weight 92 kg Weight/Height Weight 92 kg Head exam: PRESENT: normocephalic Eye exam: PRESENT: conjunctiva pink, periorbital swelling Ear exam: PRESENT: normal external ear exam Mouth exam: PRESENT: dry mucosa, tongue midline Teeth exam: PRESENT: edentulous Respiratory exam: PRESENT: decreased breath sounds, rales Cardiovascular exam: PRESENT: RRR, +S1, +S2, systolic murmur Pulses: PRESENT: +1 pedal pulses bilateral Vascular exam: PRESENT: normal capillary refill GI/Abdominal exam: PRESENT: hypoactive bowel sounds, soft Gentrourinary exam: PRESENT: indwelling catheter Extremities exam: PRESENT: pedal edema, +1 edema Tubes/Lines: PRESENT: Endotracheal Tube, Nasogastic Tube Laboratory/Radiographs Laboratory Results: 06/01/20 02:13 06/01/20 02:13 06/01/20 06/01/20 06/01/20 02:13 02:13 02:13 WBC 9.4 RBC 3.69 L Hgb 11.6 L Hct 37.2 MCV 101 H MCH 31.4 MCHC 31.2 L RDW 16.0 H Plt Count 201 Seg Neutrophils % 58.5 VBG pH VBG pCO2 VBG HCO3 VBG Base Excess Sodium 139.3 Potassium 4.1 Chloride 96 L Carbon Dioxide 19 L Anion Gap 24 H BUN 35 H Creatinine 2.50 H Est GFR ( Amer) 22 L Glucose 266 H Lactic Acid 13.2 H Calcium 8.9 Phosphorus 9.6 H Magnesium 1.9 Total Bilirubin 1.1 AST 681 H Alkaline Phosphatase 154 H Total Protein 6.4 Albumin 3.9 Urine Color Urine Appearance Urine pH Ur Specific [place] Urine Protein Urine Glucose (UA) Urine Ketones Urine Blood Urine Nitrite Ur Leukocyte Esterase Urine WBC (Auto) Urine RBC (Auto) 06/01/20 06/01/20 03:00 03:16 WBC RBC Hgb Hct MCV MCH MCHC RDW Plt Count Seg Neutrophils % VBG pH 7.08 L* VBG pCO2 60.5 VBG HCO3 17.3 L VBG Base Excess -12.9 Sodium Potassium Chloride Carbon Dioxide Anion Gap BUN Creatinine Est GFR ( Amer) Glucose Lactic Acid Calcium Phosphorus Magnesium Total Bilirubin AST Alkaline Phosphatase Total Protein Albumin Urine Color YELLOW Urine Appearance SLIGHTLY-CLOUDY Urine pH 5.0 Ur Specific [place] 1.011 Urine Protein 30 H Urine Glucose (UA) NEGATIVE Urine Ketones NEGATIVE Urine Blood NEGATIVE Urine Nitrite NEGATIVE Ur Leukocyte Esterase TRACE H Urine WBC (Auto) 10 Urine RBC (Auto) 1 06/01/20 02:13 Troponin I 0.153 NT-Pro-B Natriuret Pep 9700 H Impressions: Chest X-Ray 06/01/20 02:30 IMPRESSION: Satisfactory positioning of the endotracheal tube. Side-port for the nasogastric tube is in the distal esophagus and should be advanced at least 12 cm. Right basilar airspace opacity with probable small right pleural effusion copyright 2011 [employer]- All Rights Reserved Head CT 06/01/20 02:30 IMPRESSION: Global blurring of aguilar-white differentiation suspicious for anoxic injury and resultant edema. No evidence of hemorrhage. Critical Time Critical Time (minutes): 60 -: The care of a critically ill patient is dynamic. This note represents a static moment in the admission process. Orders and treatments may be given simultaneously and urgently, and time is not customer contact representative of the treatment process. This patient requires Critical Care secondary to life threatening organ or limb dysfunction. Without Critical Care services, the patient is at risk for increased mortality and morbidity.
--- NOTE | 2020-06-01 08:23 | RADIOLOGY REPORT (SQ) ---
EXAM DESCRIPTION: KUB/ABDOMEN (SINGLE VIEW) IMAGES COMPLETED DATE/TIME: 06/01/2020 7:53 am REASON FOR STUDY: NGT placement COMPARISON: None. NUMBER OF VIEWS: Two views. TECHNIQUE: Supine radiographic image of the abdomen acquired. LIMITATIONS: Limited field of view. FINDINGS: BOWEL GAS PATTERN: Normal bowel gas pattern. No dilated loops. CALCIFICATIONS: No suspicious calcifications. SOFT TISSUES: No gross mass or suggestion of organomegaly. HARDWARE: Enteric tube tip and proximal port projects subdiaphragmatically within the left upper quad rant. Cholecystectomy clips. BONES: No acute fracture. No worrisome bone lesions. OTHER: No other significant finding. IMPRESSION: Limited field of view demonstrates enteric tube in the appropriate position. No acute f indings. TECHNICAL DOCUMENTATION: JOB ID: [id number] 2010 [employer]- All Rights Reserved Reading location - IP/workstation name: [email or web address]
[2020-06-01] MEDS ORDERED: EPINEPHRINE INJ 1 MG/10 ML DISP.SYRIN ONE (09:06)
[2020-06-01 09:22] LABS: ARTERIAL BLOOD H2CO3 0.72 mmol/L (1.05-1.35); ARTERIAL BLOOD HCO3 12.1 mmol/L (20-24); ARTERIAL BLOOD O2 SATURATION 97.1 % (94-98); ARTERIAL BLOOD PCO2 23.8 mmHg (35-45); ARTERIAL BLOOD PH 7.32 (7.35-7.45); ARTERIAL BLOOD PO2 97.8 mmHg (80-100); ARTERIAL BLOOD TOTAL CO2 12.8 mmol/L (21-25)
[2020-06-01 09:24] LABS: ARTERIAL BLOOD FIO2 40%
[2020-06-01] MEDS: DOCUSATE SODIUM 100 MG/10 ML UDC PO SCH ×2 (09:26→17:17)
[2020-06-01] MEDS ORDERED: NOREPINEPHRINE BITARTRATE INJ/PF 4 MG/4 ML SDV IV ONE (09:40)
[2020-06-01] MEDS ORDERED: DOPAMINE HCL/DEXTROSE 5%-WATER 800 MG/250 ML RTUINJ IV PRN (09:42)
[2020-06-01] MEDS ORDERED: SODIUM BICARBONATE 8.4% INJ 50 MEQ/50 ML DISP.SYRIN ONE (10:00)
[2020-06-01] MEDS: DEXTROSE 5%-WATER 250 ML with NOREPINEPHRINE BITARTRATE 4 MG IV PRN ×4 (10:22→17:05)
[2020-06-01] MEDS: NORMAL SALINE 1000 ML 1,000 ML IV PRN ×2 (10:26→11:02)
[2020-06-01] MEDS: ENOXAPARIN SODIUM INJ 30 MG/0.3 ML DISP.SYRIN SUBCUT SCH (11:01)
[2020-06-01] MEDS: FAMOTIDINE 20 MG TABLET PO SCH ×2 (11:01→22:26)
[2020-06-01] MEDS ORDERED: SODIUM BICARBONATE 8.4% INJ 50 MEQ/50 ML DISP.SYRIN IV ONE (12:00)
--- NOTE | 2020-06-01 15:18 | EKG REPORT ---
SEVERITY:- ABNORMAL ECG - SINUS RHYTHM ATRIAL PREMATURE COMPLEX FIRST DEGREE AV BLOCK RIGHT AXIS DEVIATION BORDERLINE T ABNORMALITIES, INFERIOR LEADS : Confirmed by: Kari Blair MD 01-Jun-2020 15:17:51
[2020-06-01] MEDS: RINGERS SOLUTION,LACTATED 1,000 ML IV PRN (17:35)
[2020-06-01 18:50] LABS: ARTERIAL BLOOD BASE EXCESS -7.2 mmol/L; ARTERIAL BLOOD HCO3 11.8 mmol/L (20-24); ARTERIAL BLOOD PH 7.57 (7.35-7.45); ARTERIAL BLOOD PO2 123.8 mmHg (80-100); ARTERIAL BLOOD TOTAL CO2 12.2 mmol/L (21-25)
[2020-06-01 18:51] LABS: ARTERIAL BLOOD FIO2 40%
[2020-06-01 18:54] LABS: ARTERIAL BLOOD PCO2 13.2 mmHg (35-45)
--- NOTE | 2020-06-01 19:24 | Progress Note ---
Provider Note Provider Note: Spoke with the patient's son at bedside. Medical update provided. Present, neurological examination raises concern for the possibility of brain . No pain to noxious stimuli. Corneal reflexes are absent. Doll's eyes are absent. No cough or gag. She is intubated and on mechanical ventilatory support. She is noted to be synchronous with ventilator settings, without evidence of additional spontaneous respirations. No deep tendon reflexes. He reports there are 4 children in total. 2 sisters live here in [place] (apparently, currently out in the waiting room). The other sister lives in [place] and is planning on traveling to [place] later today. Personally, his wish is that we continue supportive care until all of the siblings are present. He understands that failure of the patient to demonstrate any improvement in the neurological exam will eventually warrant investigation of br ain . In light of her recent arrival to the hospital and questions about the possibility of any administration or ingestion of medications that could cloud this picture, I have agreed to continue maximal support for the time being. On the other hand, I did ask the patient's son to discuss CODE STATUS with the 2 sisters who were here in [place] as it would be unreasonable to expect any meaningful improvement subsequent to another episode of cardiac arrest and cardiopulmonary resuscitation, irrespective of its success.
[2020-06-01] MEDS: ALBUTEROL SULFATE 0.083% NEB 2.5 MG/3 ML AMPUL NEB SCH (20:09)
[2020-06-01] MEDS ORDERED: DEXTROSE 5%-WATER 250 ML with NOREPINEPHRINE BITARTRATE 4 MG IV PRN ×2 (20:19)
[2020-06-02] MEDS: ALBUTEROL SULFATE 0.083% NEB 2.5 MG/3 ML AMPUL NEB SCH ×2 (02:59→09:38)
[2020-06-02] MEDS: RINGERS SOLUTION,LACTATED 1,000 ML IV PRN (03:45)
--- NOTE | 2020-06-02 04:42 | Progress Note ---
Provider Note Provider Note: Discussed code status with patient son last night 06/01/20 @ 1999. Code status changed to DNR. Youngest daughter updated patient status as well and plan to withdraw care at noon 06/02/2020.
--- NOTE | 2020-06-02 09:46 | RADIOLOGY REPORT (SQ) ---
EXAM DESCRIPTION: CHEST SINGLE VIEW IMAGES COMPLETED DATE/TIME: 06/02/2020 6:12 am REASON FOR STUDY: ETT tube COMPARISON: 06/01/2020. EXAM PARAMETERS: NUMBER OF VIEWS: One view. TECHNIQUE: Single frontal radiographic view of the chest acquired. RADIATION DOSE: NA LIMITATIONS: None. FINDINGS: LUNGS AND PLEURA: Bilateral lower lung airspace disease. Right pleural effusion. MEDIASTINUM AND HILAR STRUCTURES: No masses. Contour normal. HEART AND VASCULAR STRUCTURES: Cardiomegaly. BONES: No acute findings. HARDWARE: Stable endotracheal tube and nasogastric tube. OTHER: No other significant finding. IMPRESSION: NO SIGNIFICANT INTERVAL CHANGE IN APPEARANCE OF THE CHEST. TECHNICAL DOCUMENTATION: JOB ID: [id number] 2010 [employer]- All Rights Reserved Reading location - IP/workstation name: [email or web address]
[2020-06-02] MEDS: DOCUSATE SODIUM 100 MG/10 ML UDC PO SCH (10:32)
[2020-06-02] MEDS: ENOXAPARIN SODIUM INJ 30 MG/0.3 ML DISP.SYRIN SUBCUT SCH (10:58)
[2020-06-02 12:13] VITALS: BP 146/72
--- NOTE | 2020-06-02 12:57 | PDOC CRITICAL CARE PROG REPORT ---
General Date:: 06/02/20 ICU Day:: 2 Ventilator Day:: 2 Hospital Day:: 2 Resuscitation Status: Do Not Resuscitate Events in the past 12 to 24 Hours:: This 84-year-old -[place] [facility] after cardiac arrest at home. She underwent prolonged CPR this 65-year-old female and was admitted with severe anoxic encephalopathy with minimal/trivial brainstem function. The patient's son did present to the bedside and was updated. He requested that we provide ongoing care (stipulating DNR status), in hopes that all the patient's children would be able to congregate. 06/02: Patient's daughter from [place] has arrived. 1 son, 3 daughters are at the bedside. They understand that the patient has a clinical exam that raises concern for brain . They have decided to compassionately extubate the patient. Reason for ICU Addmission:: Post arrest - Medications: Medications reviewed and adjusted accordingly: Yes Physical Exam Vital Signs: Temp Pulse Resp BP Pulse Ox 99.0 F 123 H 24 H 146/83 H 97 06/02/20 10:00 06/02/20 10:00 06/02/20 10:00 06/02/20 10:00 06/02/20 10:00 Intake & Output 06/01/20 06/02/20 06/03/20 06:59 06:59 06:59 Intake Total 1000 2927 Output Total 555 400 Balance 1000 2372 -400 Weight 90.9 kg 94.5 kg Weight/Height Weight 94.5 kg Height 1.65 m Additional comments: Called to see patient for unresponsiveness. On exam, no response to verbal, physical or tactile or noxious stimuli. No heart and breath sounds. No carotid, radial, femoral pulses. Pupils are fixed and dilated. Patient pronounced at 12:13 (24 hour format). Daughter was at the bedside. license registration examiner (Nicole) declined examination. Tubes/Lines: PRESENT: Endotracheal Tube Laboratory/Radiographs Laboratory Results: 06/01/20 02:13 06/01/20 02:13 06/01/20 18:20 Carbonic Acid 0.40 L HCO3/H2CO3 Ratio 29:1 ABG pH 7.57 H ABG pCO2 13.2 L* ABG pO2 123.8 H ABG HCO3 11.8 L ABG O2 Saturation 99.0 H ABG Base Excess -7.2 FiO2 40% 06/01/20 06/01/20 06/01/20 02:13 05:45 11:42 Troponin I 0.153 1.610 5.210 NT-Pro-B Natriuret Pep 9700 H 06/01/20 18:07 Troponin I 5.750 NT-Pro-B Natriuret Pep Impressions: KUB X-Ray 06/01/20 00:00 IMPRESSION: Limited field of view demonstrates enteric tube in the appropriate position. No acute findings. Head CT 06/01/20 02:30 IMPRESSION: Global blurring of aguilar-white differentiation suspicious for anoxic injury and resultant edema. No evidence of hemorrhage. Chest X-Ray 06/02/20 05:00 IMPRESSION: NO SIGNIFICANT INTERVAL CHANGE IN APPEARANCE OF THE CHEST. All labs, radiographs, diagnostic studies and EKGs were personally reviewed: Yes In addition, reports of radiographic and diagnostic studies were read: Yes Assessment and Plan - Diagnosis (1) Cardiac arrest Is this a current diagnosis for this admission?: Yes (2) Lactic acidosis Is this a current diagnosis for this admission?: Yes (3) Respiratory failure Qualifiers: Chronicity: acute Respiratory failure complication: hypoxia Qualified Code(s): J96.01 - Acute respiratory failure with hypoxia Is this a current diagnosis for this admission?: Yes (4) Shock liver Is this a current diagnosis for this admission?: Yes Plan Summary: Compassionate extubation today. Critical Time Critical Time (minutes): 30 Level of Care: ICU -: 1. The care of a critical patient is a dynamic process. This note is a factory representative synopsis but static in nature. The timeframe for treatments given in order is not necessarily the actual time these treatments may have been done. 2. This patient requires critical care secondary to ongoing requirements for therapy not offered or safe outside the critical care environment. Transfer to a lower level of care will result in altered life or limb morbidity and mortality. 3. Multidisciplinary rounds completed. 4. ABCDE bundle addressed.
--- NOTE | 2020-06-02 13:09 | Death Summary ---
Summary Date : 06/02/20 Time of :: 12:13 Autopsy: No Resuscitation Status: Do Not Resuscitate - Final Diagnosis (1) Cerebral edema Is this a current diagnosis for this admission?: Yes (2) Anoxic encephalopathy Is this a current diagnosis for this admission?: Yes (3) Cardiac arrest Is this a current diagnosis for this admission?: Yes (4) Lactic acidosis Is this a current diagnosis for this admission?: Yes (5) Respiratory failure Is this a current diagnosis for this admission?: Yes (6) Shock liver Is this a current diagnosis for this admission?: Yes Hospital Course:: This 84-year-old -[place] female presented to [facility] emergency department on 06/01/2020 after cardiac arrest at home. She underwent prolonged CPR was admitted with severe anoxic encephalopathy with minimal/trivial brainstem function. Head CT was obtained (06/01/2020, 02 30) upon arrival to the emergency department and revealed global blurring of aguilar- white differentiation, suspicious for anoxic injury and resultant edema. In fact, by the time the patient was physically admitted to the ICU, she had a clinical examination that was highly suspicious for brain . The patient's son did present to the bedside and was updated. He requested that we provide ongoing care (stipulating DNR status), in hopes that all the patient's children would be able to congregate. Patient's daughter from [place] lives at the bedside on 06/02/2020. All children were present and reported that they wanted to proceed with compassionate extubation. The patient was extubated. Time of 12:13, 06/02/2020.
== END 2020-06-02 14:10 | disposition left against medical advice (07) | DRG 80 ==
LOC: ER 02:03 → EH 04:50 → ICU 06:39
PROVIDERS: ADMIT Internal Medicine Critical Care Medicine; ATTEND Internal Medicine Critical Care Medicine
PROC: 5A1945Z Respiratory Ventilation, 24-96 Consecutive Hours (ICD-10-PCS; principal; 2020-06-01)
PROC: 0BH17EZ Insertion of Endotracheal Airway into Trachea, Via Natural or Artificial Opening (ICD-10-PCS; 2020-06-01)
DX: G93.6 Cerebral edema (principal); K72.00 Acute and subacute hepatic failure without coma; J96.01 Acute respiratory failure with hypoxia; E87.2 Acidosis; G93.1 Anoxic brain damage, not elsewhere classified; I46.9 Cardiac arrest, cause unspecified; D64.9 Anemia, unspecified; E11.9 Type 2 diabetes mellitus without complications; K21.9 Gastro-esophageal reflux disease without esophagitis; Z66 Do not resuscitate; Z86.73 Personal history of transient ischemic attack (TIA), and cerebral infarction without residual deficits; Z79.84 Long term (current) use of oral hypoglycemic drugs; Z79.82 Long term (current) use of aspirin; Z79.4 Long term (current) use of insulin; Z79.891 Long term (current) use of opiate analgesic; Z79.899 Other long term (current) drug therapy
CPT/HCPCS: 36415; 70450; 71045; 74018; 80053; 80307; 81001; 82803; 82962; 83605; 83735; 83880; 84100; 84484; 85025; 93005; 93010; 94002; 94003; 94640; J0171; J1265; J1650; J2543; J3475; J3490; J7030; J7060; J7120; J7613